=== PATIENT | male | born 1995 | race African-American/Black ===

== ENCOUNTER 2021-09-11 11:34 | Emergency (ER) | payer MEDICAID ==
[~2021-09-11] VITALS: Ht 172.7 cm; Wt 68.2 kg
[2021-09-11] MEDS ORDERED: SPRITAM500 MG PO (12:27)
[2021-09-11] MEDS ORDERED: TRILEPTAL600 MG PO (12:28)
[2021-09-11 14:58] VITALS: BP 121/69; PULSE 74; TEMP 98.3
--- NOTE | 2021-09-11 15:22 | NUR ---
beef cattle farm worker met with patient and provided voucher for medications at [facility]. Patient states he has medicaid in another state and is moving to [place]. Worker provided information for patient to call our financial counselor to apply for [place] medicaid.
== END 2021-09-11 14:58 | disposition home or self-care (01) ==
LOC: COL.ER 11:34
DX: G40.909 Epilepsy, unspecified, not intractable, without status epilepticus (principal); Z79.899 Other long term (current) drug therapy